=== PATIENT | male | born 1955 | race Caucasian/White ===

== ENCOUNTER → 2020-03-07 | Outpatient (CLI) | payer MEDICARE, BC | LOC: RAD 12:00 | DX: K83.8 Other specified diseases of biliary tract (principal) ==

== ENCOUNTER → 2022-07-11 | Outpatient (CLI) | payer MEDICARE, OTHER | LOC: RAD 11:54 | DX: R18.8 Other ascites (principal); D68.51 Activated protein C resistance; C80.1 Malignant (primary) neoplasm, unspecified ==